=== PATIENT | male | born 1985 | race Caucasian/White ===

== ENCOUNTER 2016-08-13 18:09 | Emergency (ER) | payer BC ==
[~2016-08-13] VITALS: Ht 172.7 cm; Wt 68.0 kg
[2016-08-13 18:21] VITALS: Ht 172.7 cm; Wt 68.0 kg
[2016-08-13] MEDS ORDERED: LIDOCAINE 4% CR TOP STA (19:40)
--- NOTE | 2016-08-13 20:04 | RADRPT ---
PROCEDURE: XR Cervical Spine. CLINICAL INDICATION: Neck pain TECHNIQUE: AP, lateral, and odontoid views of the cervical spine were obtained. COMPARISON: None available FINDINGS: Mineralization is within normal limits. No fracture or osseous lesion is identified. Vertebral bod ies are normal in height. Cervical lordosis is straightened. No vertebral subluxation is seen. In tervertebral discs are normal in height except for a trace narrowing at C5-6. Facet joints appear m aintained. Prevertebral soft tissues, predental space and atlantoaxial joint are unremarkable. Burnham llic densities are consistent with prior bilateral internal mandibular fixation hardware RPTAT:HJJR IMPRESSION: 1. Trace disk narrowing at C5-6 is suggested. 2. Straightening of the normal lordosis may be from positioning but cannot exclude muscle spasm. Physician Tiffany Date Time Electronically viewed and signed by Physician Tiffany on 08/13/2016 20:03 /
[2016-08-13] MEDS ORDERED: [UNRECOGNIZED DRUG - REMARK] PO (21:15)
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
[2016-08-13] MEDS ORDERED: CIPR500T4 PO (22:16)
[2016-08-13] MEDS ORDERED: ACET500C5 PO (22:16)
[2016-08-13 22:37] VITALS: BP 139/82; PULSE 69; RESP 16
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
== END 2016-08-13 23:20 | disposition home or self-care (01) ==
LOC: FTE 18:09 → E/R 23:20
DX: S00.431A Contusion of right ear, initial encounter (principal); Y09 Assault by unspecified means; Z87.891 Personal history of nicotine dependence
CPT/HCPCS: 70450; 72040